=== PATIENT | female | born 1975 | race Caucasian/White ===

== ENCOUNTER → 2016-12-20 | Outpatient (CLI) | payer OTHER ==
[~2016-12-20] MED LIST: BCPILLS PO; ELDERBERRY PO
== END | disposition home or self-care (01) ==
LOC: C.LABSPEC 17:34
PROVIDERS: ATTEND Obstetrics & Gynecology
DX: A63.0 Anogenital (venereal) warts (principal); N87.0 Mild cervical dysplasia

== ENCOUNTER → 2017-06-16 | Outpatient (CLI) | payer OTHER ==
[~2017-06-16] MED LIST changes: +DOCU100C PO; +HOME1TAB55 PO
== END | disposition home or self-care (01) ==
LOC: C.PATHSPEC 15:44
PROVIDERS: ATTEND Obstetrics & Gynecology
DX: N92.0 Excessive and frequent menstruation with regular cycle (principal)

== ENCOUNTER 2017-08-22 09:09 | Observation (INO) | payer OTHER ==
[2017-08-05 12:49] VITALS: BMI 24.0
--- NOTE | 2017-08-05 13:11 | PAT Medication Instructions ---
Service Date Aug 05, 2017. Current Home Medication List [Lou], 1 TBS PO QAM Medication Instructions For Your Scheduled Surgery - Hold the following medications 2 weeks prior to surgery: [Lou], 1 TBS PO QAM Nothing to eat or drink after midnight If you have any questions please call us at [phone] or [phone] or [phone]
[2017-08-05 13:27] LABS: BASO % 0.5 %; BASO ABS # 0.02 K/uL (0-0.2); COMPLETE YES; EOS % 0.7 %; HEMATOCRIT 38.7 % (37-47); IG% 0.2 %; LYMPH % 26.5 %; LYMPH ABS # 1.16 K/uL (1.2-3.4); MEAN CELL VOLUME 81.3 fL (80-100); MEAN CORPUSCULAR HEMOGLOBIN 27.7 pg (25-34); MEAN CORPUSCULAR HGB CONC 34.1 g/dl (32-36); MEAN PLATELET VOLUME 8.7 fL (7.4-10.4); MONO % 7.6 %; NEUT % 64.5 %; PLATELET COUNT 234 K/uL (130-400); RED BLOOD COUNT 4.76 M/uL (4.2-5.4); WHITE BLOOD COUNT 4.37 K/uL (4.8-10.8)
[2017-08-05 13:28] LABS: URINE APPEARANCE CLEAR (CLEAR); URINE BILIRUBIN NEG (NEG); URINE COLOR YELLOW; URINE EPITHELIAL CELL AUTO >30 /lpf (0-5); URINE NITRITE NEG (NEG); URINE SPECIFIC GRAVITY 1.009 (1.000-1.030); UROBILINOGEN NEG (NEG)
[2017-08-05 13:32] LABS: MANUAL MICROSCOPIC REQUIRED? NO; REVIEW REQ? NO
[2017-08-05 15:05] LABS: BUN/CREATININE RATIO 14.8 (10-20); CALCIUM 9.2 mg/dl (8.5-10.1); CREATININE 0.65 mg/dl (0.60-1.20); POTASSIUM 4.2 mmol/L (3.5-5.1)
[2017-08-05 15:08] LABS: ALB/GLOB RATIO 1.1 (0.9-2)
[~2017-08-22] VITALS: Ht 157.5 cm; Wt 60.8 kg
[2017-08-22] VITALS (7 sets, daily range): BP systolic 108–125; BP diastolic 74–82; PULSE 76–104; TEMP 36.7–37; O2SAT 98–99; Ht 157.5 cm; Wt 60.8 kg
[~2017-08-22 09:09] MED LIST changes: -BCPILLS PO; +CEFAZOLIN 2000 MG/60 ML D5W 50 ML IV SCH; -DOCU100C PO; -HOME1TAB55 PO; +LACTATED RINGER'S 1000ML 1,000 ML IV SCH
[2017-08-22] MEDS ORDERED: HOME1TAB55 PO (09:46)
[2017-08-22] MEDS ORDERED: DOCU100C PO (09:48)
--- NOTE | 2017-08-22 10:32 | History & Physical Bridge Note ---
H&P Re-Evaluation Bridge Note: I have examined the patient, reviewed the History & Physical and in the interval since the performance of the History & Physical I have noted the following changes of clinical significance: No changes noted
[2017-08-22] MEDS ORDERED: HYDROmorphone INJ 1 MG/ML SYR IV PRN (10:45)
[2017-08-22] MEDS ORDERED: FENTANYL CITRATE INJ 50 MCG/1 ML 2 ML VIAL IV PRN (10:45)
[2017-08-22] MEDS ORDERED: LABETALOL HCL IV 5 MG/ML 20ML IV PRN (10:45)
[2017-08-22] MEDS ORDERED: ATROPINE SULFATE 0.1 MG/ML 5ML SYR IV PRN (10:45)
[2017-08-22] MEDS ORDERED: BUPIVACAINE 0.5 % 5 MG/1 ML MPF 30ML VIAL ONE (10:45)
[2017-08-22] MEDS ORDERED: MEPERIDINE HCL 25 MG/ML CARP IV PRN (10:45)
[2017-08-22] MEDS ORDERED: EpHEDrine SULFATE INJ 50 MG/ML AMP IV PRN (10:45)
[2017-08-22] MEDS ORDERED: ONDANSETRON INJ 2 MG/ML 2 ML VIAL IV PRN ×2 (10:45→16:15)
[2017-08-22] MEDS ORDERED: DEXAMETHASONE SOD INJ 4 MG/ML VIAL ONE (11:47)
[2017-08-22] MEDS ORDERED: ONDANSETRON INJ 2 MG/ML 2 ML VIAL ONE ×2 (11:47→15:04)
[2017-08-22] MEDS ORDERED: FENTANYL CITRATE INJ 50 MCG/1 ML 2 ML VIAL ONE ×4 (11:47→16:11)
[2017-08-22] MEDS ORDERED: MIDAZOLAM HCL 1 MG/ML 2ML VIAL ONE (11:47)
[2017-08-22] MEDS ORDERED: PROPOFOL IV EMULSION 10 MG/ML 20 ML VIAL IV ONE (11:47)
[2017-08-22] MEDS ORDERED: LIDOCAINE HCL 2% 2 ML VIAL (20MG/ML) ONE (11:47)
[2017-08-22] MEDS ORDERED: ROCURONIUM BROMIDE 10 MG/ML 5 ML VIAL IV ONE ×2 (12:43→15:05)
[2017-08-22] MEDS ORDERED: METHYLENE BLUE 0.5% 10 ML VIAL ONE (14:30)
[2017-08-22] MEDS ORDERED: NEOSTIGMINE METHYLSULFATE 5 MG/5 ML SYR ONE (15:04)
[2017-08-22] MEDS ORDERED: GLYCOPYRROLATE INJ 0.2 MG/ML VIAL ONE (15:04)
--- NOTE | 2017-08-22 16:10 | [facility] Post Operative Brief Note ---
Immediate Operative Summary Operative Date Aug 22, 2017. Pre-Operative Diagnosis Menorrhagia, Uterine leimyoma Post-Operative Diagnosis Menorrhagia, Uterine leimyoma Procedure(s) Performed Robotic assisted total laparoscopic hysterectomy with bilateral salpingectomies, and cystoscopy Surgeon Dr. Marilyn Cyr DO Band Instrument Maker Surgeon(s) None Estimated Blood Loss 25mL Findings Enlarged uterus with multiple subserosal fibroids. Normal appearing uterus, tubes. On cystoscopy, bladder appears normal and bilateral urine jets from ureters seen. Bowel and pelvis appear normal. Specimens A. Uterus, cervix, bilateral fallopian tubes Drains gutierrez, clear blue urine at end of case Anesthesia general Complication(s) None Disposition Recovery Room / PACU
[2017-08-22] MEDS ORDERED: KETOROLAC TROMETHAMINE 30 MG/ML VIAL IV. PRN (16:15)
[2017-08-22] MEDS ORDERED: MAGNESIUM HYDROXIDE SUSP 30 ML UDC PO PRN (16:15)
[2017-08-22] MEDS ORDERED: OXYCODONE/ACETAMINOPHEN 5-325 TAB PO PRN (16:15)
[2017-08-22] MEDS ORDERED: IV FLUIDS COMPLETED PRN (16:15)
[2017-08-22] MEDS ORDERED: PROMETHAZINE HCL INJ 12.5 MG in SODIUM CHLORIDE 0.9% 50ML 50 ML IV PRN (16:15)
--- NOTE | 2017-08-22 16:30 | Anesthesiology Progress Note ---
Anesthesia Post Op Note Date & Time Aug 22, 2017 at 16:30 Vital Signs Pain Intensity: 3.0 Vital Signs Past 12 Hours Date Time Temp Pulse Resp B/P (MAP) Pulse Ox O2 Delivery O2 Flow Rate FiO2 08/22/17 16:15 85 18 130/83 100 Oxymask 10 08/22/17 16:05 37 99 18 132/82 98 Oxymask 10 08/22/17 09:45 36.9 76 18 108/74 (85) 98 Room Air Notes Mental Status: alert / awake / arousable, participated in evaluation Pt Amnestic to Procedure: Yes Nausea / Vomiting: adequately controlled Pain: adequately controlled Airway Patency, RR, SpO2: stable & adequate BP & HR: stable & adequate Hydration State: stable & adequate Anesthetic Complications: no major complications apparent
[2017-08-22] MEDS ORDERED: LACTATED RINGER'S 1000ML 1,000 ML IV SCH (19:33)
[2017-08-22 19:59] LABS: HEMATOCRIT 36.2 % (37-47)
[2017-08-22] MEDS: SIMETHICONE 80 MG CHEW PO PRN (20:50)
[2017-08-22] MEDS: DOCUSATE SODIUM 100 MG CAP PO SCH (20:50)
[2017-08-22] MEDS: OXYCODONE/ACETAMINOPHEN 5-325 TAB PO PRN (20:51)
[2017-08-22] MEDS: IBUPROFEN 600 MG TAB PO PRN (20:51)
--- NOTE | 2017-08-22 22:04 | OPERATIVE REPORT ---
DATE OF OPERATION: 08/22/2017 PREOPERATIVE DIAGNOSES: Menorrhagia and uterine leiomyoma. POSTOPERATIVE DIAGNOSES: Same. PROCEDURE PERFORMED: Robotic assisted total laparoscopic hysterectomy with bilateral salpingectomy and cystoscopy. SURGEON: Dr. Marilyn Cyr. CORE SHAPER: None. ESTIMATED BLOOD LOSS: 25 mL. FINDINGS: Enlarged uterus with multiple subserosal fibroids, normal appearing ovaries and tubes. On cystoscopy, bladder appears normal and bilateral urine jets from ureters seen. Bowel and pelvis otherwise appeared normal. SPECIMENS: Uterus, cervix and bilateral fallopian tubes. DRAINS: Davila, clear blue urine at the end of the case. ANESTHESIA: General. COMPLICATIONS: None. DISPOSITION: Stable and good to recovery room. HISTORY OF PRESENT ILLNESS: The patient is a 42-year-old G0 with heavy menses that are disrupting daily activities. She has considered hormonal and muscle invasive surgical options, but due to both her uterine fibroids and desire to seek definitive treatment, she elected to proceed with hysterectomy. DESCRIPTION OF PROCEDURE: The patient was seen in the preoperative holding area where risks, benefits, alternatives to surgery were reviewed. She elected to proceed with surgery. She had previously signed informed consent in the office under no duress. She was taken to the operating room where general anesthesia was introduced. She was prepared and draped in the usual sterile fashion with feet in Yellofin stirrups in the dorsal lithotomy position. A timeout was confirmed. A Davila catheter was placed in the bladder. A weighted speculum was placed in the vagina. The cervix was visualized. The anterior lip was grasped with a single tooth tenaculum. Bilateral stay sutures were placed at 3 o'clock and 9 o'clock on the cervix and the uterine manipulator was inserted after gently dilating the cervix. Gloves and gown were changed and attention was then turned to the abdomen where a supraumbilical incision was made with a scalpel and carried through to the underlying layer of the fascia. A supraumbilical trocar was placed using Miguel technique. The camera was inserted and intraabdominal placement was noted. CO2 gas was used to insufflate the abdomen to 15 mmHg pressure. The additional port sites were placed under direct visualization with 3-0 and an special events assistant port. The robot was then docked. The hysterectomy was then started. The bilateral fallopian tubes were grasped and using monopolar scissors were transected from the mesosalpinx and passed off to be sent to pathology. The left uteroovarian ligament was coagulated and transected. Next, the round ligament was coagulated and transected and the uterine arteries were skeletonized. The bladder flap was taken down from the anterior aspect of the uterus. The uterine arteries were then coagulated and transected. In a similar fashion, the right uteroovarian ligament and round ligament were taken down and the vessels were skeletonized and the right uterine vessels were coagulated and then transected. The bilateral ureters were visualized peristalsing prior to these incisions. The bladder was pushed down away from the vaginal cuff, the uterus was then transected from the vaginal cuff in a circumferential fashion. Multiple attempts were made to deliver the uterus vaginally; however, it was too large given the shape of the fibroids. Therefore, the uterus was placed back in the cavity and the vaginal cuff was then reapproximated using a V-Loc suture in a running stitch. Negative pressure test was performed and excellent hemostasis was observed. Tisseel anticoagulant was used across all raw surfaces in the pelvis. Attention was then turned to the bladder and a cystoscopy was performed. This scope was placed gently through the urethra into the bladder and 300 mL of saline were used to inflate the bladder. The bladder was visualized and appeared normal, no sutures or trauma to the bladder were noted and bilateral urine jets of methylene blue were visualized from bilateral ureters. The new Davila catheter was then placed for the postoperative recovery. The robot was undocked and the EndoCatch port was replaced the Miguel port. The EndoCatch bag was then inserted and a 5 mm scope was used to visualize the uterus, this was then placed into the EndoCatch bag which was brought to the supraumbilical incision and this incision was extended bilaterally using both Metzenbaum scissors and a scalpel. A small Sadi retractor was placed inside the EndoCatch bag. The fibroids were then bluntly dissected from the uterus and removed piece by piece from the EndoCatch bag. At no time was the EndoCatch bag perforated or cut. Once all uterine components were removed, the Sadi retractor an EndoCatch bag were removed from the abdomen. All trocars were removed and the abdomen was desufflated of CO2 gas. The supraumbilical fascial incision was reapproximated using 0 Vicryl in a running stitch. The subQ tissue was reapproximated again with 0 Vicryl and all incision sites were reapproximated with subcuticular stitches of 4-0 Vicryl. Dermabond glue was applied. The patient was then awoken from anesthesia and taken to the recovery area in stable and good condition. She tolerated the procedure well and due to the late hour of at the conclusion of the surgery, she will be observed overnight. I attest to the content of the Intraoperative Record and any orders documented therein. Any exception s are noted below.
[2017-08-23 03:30] VITALS: BP 106/69; PULSE 89; TEMP 36.9; O2SAT 98
[2017-08-23] MEDS: IBUPROFEN 600 MG TAB PO PRN ×2 (03:35→08:56)
[2017-08-23] MEDS: OXYCODONE/ACETAMINOPHEN 5-325 TAB PO PRN ×2 (03:35→08:55)
[2017-08-23 06:52] LABS: BASO % 0.1 %; BASO ABS # 0.01 K/uL (0-0.2); COMPLETE YES; EOS % 0.1 %; IG% 0.1 %; LYMPH % 15.9 %; LYMPH ABS # 1.46 K/uL (1.2-3.4); MEAN CELL VOLUME 81.2 fL (80-100); MEAN CORPUSCULAR HEMOGLOBIN 27.2 pg (25-34); MEAN CORPUSCULAR HGB CONC 33.4 g/dl (32-36); MEAN PLATELET VOLUME 8.5 fL (7.4-10.4); MONO % 7.8 %; PLATELET COUNT 230 K/uL (130-400); RED BLOOD COUNT 3.94 M/uL (4.2-5.4); WHITE BLOOD COUNT 9.19 K/uL (4.8-10.8)
[2017-08-23 07:18] LABS: CALCIUM 8.3 mg/dl (8.5-10.1); CREATININE 0.68 mg/dl (0.60-1.20); POTASSIUM 3.5 mmol/L (3.5-5.1)
[2017-08-23 08:55] VITALS: BP 114/70; PULSE 77; TEMP 36.8; O2SAT 99
[2017-08-23] MEDS: DOCUSATE SODIUM 100 MG CAP PO SCH (08:56)
[2017-08-23] MEDS: SIMETHICONE 80 MG CHEW PO PRN (08:56)
--- NOTE | 2017-08-23 09:24 | OB/GYN Progress Note ---
WASTE DISPOSAL LEAKAGE TESTER Progress Note Date of Service Aug 23, 2017. Subjective conversation w/ patient, physical exam Ambulation: ambulating normally Voiding: no voiding problems Passing Gas: No Diet Tolerance: Regular Diet Pain: controlled with PO meds Review of Systems Constitutional: No problem reported Respiratory: No problem reported Cardiac: No problem reported Breast: No problem reported Abdomen: No problem reported Female : No problem reported Objective Vital Signs Date Time Temp Pulse Resp B/P (MAP) Pulse Ox O2 Delivery O2 Flow Rate FiO2 08/23/17 03:30 36.9 89 16 106/69 (81) 98 Room Air 08/22/17 23:50 37.0 96 18 121/76 (91) 99 Room Air 08/22/17 23:50 99 Room Air 08/22/17 20:10 36.7 95 18 123/82 (96) 98 Room Air 08/22/17 19:25 36.8 104 18 125/75 (92) 98 Room Air 08/22/17 18:25 36.7 81 18 119/80 (93) 98 Room Air 08/22/17 17:55 36.7 90 18 119/80 (93) 98 Room Air 08/22/17 17:25 99 Room Air 08/22/17 17:25 99 Room Air 08/22/17 17:25 36.9 94 18 119/80 (93) 99 Room Air 08/22/17 17:00 36.5 90 18 122/77 100 Nasal Cannula 4 08/22/17 16:45 36.5 88 18 118/71 100 Nasal Cannula 4 08/22/17 16:35 88 18 116/76 100 Nasal Cannula 4 08/22/17 16:25 90 18 122/69 100 Nasal Cannula 4 08/22/17 16:15 85 18 130/83 100 Oxymask 10 08/22/17 16:05 37 99 18 132/82 98 Oxymask 10 08/22/17 09:45 36.9 76 18 108/74 (85) 98 Room Air Physical Exam General Appearance: WELL-APPEARING, NO APPARENT DISTRESS Respiratory/Chest: no respiratory distress Cardiovascular: regular rate, rhythm Abdomen: non tender, soft Incision Description: Clean, Dry & Intact, Ecchymosis (bruising around incision sites, especially at supraumbilical incision. consistent with surgical procedure.) Extremities: normal inspection Laboratory Results Last 24 Hours Test 08/22/17 09:35 10/6/17 19:40 08/23/17 06:30 Bedside Urine Test NEG Hemoglobin 11.9 g/dL 10.7 g/dL Hematocrit 36.2 % 32.0 % White Blood Count 9.19 K/uL Red Blood Count 3.94 M/uL Mean Corpuscular Volume 81.2 fL Mean Corpuscular Hemoglobin 27.2 pg Mean Corpuscular Hemoglobin Concent 33.4 g/dl Platelet Count 230 K/uL Mean Platelet Volume 8.5 fL Neutrophils (%) (Auto) 76.0 % Lymphocytes (%) (Auto) 15.9 % Monocytes (%) (Auto) 7.8 % Eosinophils (%) (Auto) 0.1 % Basophils (%) (Auto) 0.1 % Neutrophils # (Auto) 6.98 K/uL Lymphocytes # (Auto) 1.46 K/uL Monocytes # (Auto) 0.72 K/uL Eosinophils # (Auto) 0.01 K/uL Basophils # (Auto) 0.01 K/uL RDW Standard Deviation 39.8 fL RDW Coefficient of Variation 13.3 % Immature Granulocyte % (Auto) 0.1 % Immature Granulocyte # (Auto) 0.01 K/uL Sodium Level 142 mmol/L Potassium Level 3.5 mmol/L Chloride Level 109 mmol/L Carbon Dioxide Level 25 mmol/L Anion Gap 8.0 mmol/L Blood Urea Nitrogen 6 mg/dl Creatinine 0.68 mg/dl Est Creatinine Clear Calc Drug Dose 93.5 ml/min Estimated GFR () 125.9 Estimated GFR (Non- 108.6 BUN/Creatinine Ratio 9.0 Random Glucose 103 mg/dl Calcium Level 8.3 mg/dl Assessment and Plan Post-Op Day Number: 1 Continue Routine Care: Patient is doing well, POD#1 s/p RALH/BS, Excite procedure, with cystoscopy. Discharge to home today, followup in office in 2w. Discharge instructions discussed.
--- NOTE | 2017-08-23 09:27 | Discharge Instructions ---
Discharge Instructions Date of Service Aug 23, 2017. Admission Reason for Admission: Menorrhagia Discharge Discharge Diagnosis / Problem: s/p robotic total laparoscopic hysterectomy, bilateral salpingectomy, cysto Discharge Goals Goal(s): Routine recovery after surgery Activity Recommendations Activity Limitations: per Instructions/Follow-up section . Instructions / Follow-Up Instructions / Follow-Up ACTIVITY RECOMMENDATIONS: Activity: * During the first week at home, your activity should be similar to that done at the hospital prior to discharge. Your primary activity is in-house walking interspersed with rest periods. Preparing lunch for yourself is acceptable. You may go up and down stairs. Try to stay up progressively longer periods of time to help regain your strength more quickly. * During the second week at home, activities should include some meal preparation, walking to strengthen abdominal muscles and riding in a car. You may drive a car and make brief shopping trips at the end of the second week at home. * Lifting should not exceed 15-20 pounds during the first month after surgery. * Sexual intercourse can usually be resumed about 12 weeks after surgery depending on findings at your post-operative examinations. Bathing: * Showers or baths are permissible. Sitting in four to six inches of hot water (sitz bath) is often comforting after vaginal surgery and is permitted at any time. A sitz bath at bedtime can also assist in a better night's sleep. SPECIAL CARE INSTRUCTIONS: The major discomforts related to surgery have now passed and progressive improvement will occur. The tight uncomfortable feeling in the abdominal, pelvic and back area will gradually fade away. Fatigue may take the longest to disappear; your energy level may take several weeks to return to normal. At times you may become frustrated or impatient over not feeling as well or doing as much as you'd like , but this is a normal reaction to surgery and will pass with time. Vaginal Discharge: * Odorous, blood-tinged or brownish discharge may be present for one to three weeks after surgery. * Pads should be used and not tampons. * Stitches may be passed vaginally. * Bleeding may be somewhat increased approximately two weeks after surgery, which is related to the stitches dissolving. * If bleeding becomes free flowing, notify our office at . Bowel Care: * Constipation after surgery is very common. Foods that promote bowel activity (bran, fruit, prune juice) should be included in your diet. * A capsule, DIALOSE-PLUS, can be purchased without a prescription and can be taken daily (one or two capsules) to assist in promoting bowel activity. * If you have had vaginal surgery involving your rectum, we will discuss this when discharged from the hospital. Temperature: * Any fever above 100.4 degrees F should be reported to our office at . FOLLOW-UP: Post-Operative Appointments: * Individual instructions will have been given about the timing of your first examination, but this is usually at the end of the second week home. * You will need to call the office at soon after discharge to make the appointment for your post-op check-up if it has not already been scheduled. * Additional information regarding activity, sexual intercourse and when to return to work will be given at this appointment. WE WISH YOU A SPEEDY RECOVERY! Current Hospital Diet Patient's current hospital diet: Regular Diet Discharge Diet Recommended Diet: Regular Diet Procedures Procedures Performed: Robotic assisted total laparoscopic hysterectomy with bilateral salpingectomies, and cystoscopy Pending Studies Studies pending at discharge: yes List of pending studies: pathology report Medical Emergencies . Who to Call and When: Medical Emergencies: If at any time you feel your situation is an emergency, please call 911 immediately. . Non-Emergent Contact Non-Emergency issues call your: Primary Care Provider, Drapery Worker . . "Provider Documentation" section prepared by Marilyn Cyr. . VTE Core Measure Inpt VTE Proph given/why not?: SCD's
[2017-08-23 09:53] VITALS: BP 114/70; PULSE 77; TEMP 36.8; O2SAT 99
== END 2017-08-23 10:40 | disposition home or self-care (01) ==
LOC: C.ACU 09:09 → C.MS4N 10:20 → ENRESERV 17:19
PROVIDERS: ADMIT Obstetrics & Gynecology; ATTEND Obstetrics & Gynecology
DX: N92.0 Excessive and frequent menstruation with regular cycle (principal); D25.9 Leiomyoma of uterus, unspecified; N80.0 Endometriosis of uterus; Z88.0 Allergy status to penicillin; Z88.2 Allergy status to sulfonamides; Z68.24 Body mass index [BMI] 24.0-24.9, adult; Z83.3 Family history of diabetes mellitus; Z83.42 Family history of familial hypercholesterolemia
CPT/HCPCS: 58573; S2900

== ENCOUNTER 2017-10-30 13:03 | Emergency (ER) | payer OTHER ==
[~2017-10-30] VITALS: Ht 157.5 cm; Wt 62.7 kg
[~2017-10-30 13:03] MED LIST changes: -CEFAZOLIN 2000 MG/60 ML D5W 50 ML IV SCH; +DOCU100C PO; +HOME1TAB55 PO; -LACTATED RINGER'S 1000ML 1,000 ML IV SCH
[2017-10-30 13:05] VITALS: BP 131/85; PULSE 90; TEMP 36.7; O2SAT 95; Ht 157.5 cm; Wt 62.7 kg
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
== END 2017-10-30 13:45 | disposition home or self-care (01) ==
LOC: C.EDB 13:04 → C.EDD 13:45
DX: M54.2 Cervicalgia (principal); V44.5XXA Car driver injured in collision with heavy transport vehicle or bus in traffic accident, initial encounter; Y92.488 Other paved roadways as the place of occurrence of the external cause